=== PATIENT | female | born 1950 | race Caucasian/White ===

== ENCOUNTER → 2018-01-18 | Outpatient (CLI) | payer MEDICARE, BC ==
[~2018-01-18] MED LIST: ACET325; BONIVA; BUDE32NIS; CALPHO600; CHOL10002; DOXE0.5; ESTR25VT; HYDSUL200; IRON150C; LEVSOD150; LORA10ER; MULVITA; OMEP20ER PO; RANI150; RANI150 PO; URSO300; VALS80; ZOLP10 PO; [UNRECOGNIZED DRUG - CODE]
[2018-01-18 10:34] LABS: Hematocrit 38.8 % (33.0-51.0); Hemoglobin 11.8 g/dL (11.5-16.0); Mean Corpuscular HGB 28.4 pg (26.0-34.0); Mean Corpuscular HGB Conc 30.4 g/dL (31.5-36.5); Mean Corpuscular Volume 94 fL (80-100); Mean Platelet Volume 9.8 fL (9.1-12.4); Platelet Count 264 K/mm3 (150-400); RDW Coefficient Variation 14.3 % (11.7-14.2); RDW Standard Deviation 48.9 fL (35.1-46.3); Red Blood Cell Count 4.15 M/mm3 (3.80-5.20); White Blood Cell Count 4.84 K/mm3 (4.00-11.30)
[2018-01-18 10:48] LABS: Alanine Aminotransfer (ALT/SGP 49 U/L (12-78); Albumin, Blood 3.9 g/dL (3.4-5.0); Albumin/Globulin Ratio 1.3 (0.8-1.8); Alk Phos 63 U/L (50-136); Anion Gap 10 mmol/L (6-16); Aspartate Aminotrans (AST/SGOT 40 U/L (12-37); Bilirubin, Total 0.5 mg/dL (0.1-1.0); Blood Urea Nitrogen 10 mg/dL (8-24); Bun/Creatinine Ratio 13.4 (12.0-20.0); CO2, Blood 23 mmol/L (21-32); Calcium, Blood 8.9 mg/dL (8.5-10.1); Chloride, Blood 109 mmol/L (98-108); Creatinine, Blood 0.75 mg/dL (0.40-1.00); Globulin, Blood 3.1 g/dL (2.2-4.0); Glomerular Filtration Rate >60 (60-); Glucose, Blood 117 mg/dL (70-99); Potassium, Blood 3.7 mmol/L (3.5-5.5); Sodium, Blood 142 mmol/L (136-145)
[2018-01-18 10:53] LABS: BAND PERCENT MAN 16 % (0-8); BASOPHILS PERCENT MAN 0 % (0-2); EOSINOPHILS ABSOLUTE MAN 0.09 K/mm3 (0.00-0.68); EOSINOPHILS PERCENT MAN 2 % (0-6); LYMPHOCYTES ABSOLUTE MAN 0.67 K/mm3 (0.84-5.20); LYMPHOCYTES PERCENT MAN 14 % (21-46); METAMYELOCYTE ABSOLUTE MAN 0.24 K/mm3 (0.00-0.00); METAMYELOCYTE PERCENT MAN 5 % (0-0); MONOCYTES ABSOLUTE MAN 0.14 K/mm3 (0.16-1.47); MONOCYTES PERCENT MAN 3 % (4-13); NEUTROPHILS ABSOLUTE MAN 3.67 K/mm3 (1.96-9.15); SEG NEUTROPHILS PERCENT MAN 60 % (41-73); TOTAL CELLS COUNTED 100
== END | disposition home or self-care (01) ==
LOC: LAB EV 10:01 → LAB SHORT 10:01
PROVIDERS: General Practice
DX: E03.9 Hypothyroidism, unspecified (principal); I51.7 Cardiomegaly; R05 Cough; Z94.0 Kidney transplant status
CPT/HCPCS: 80053; 83880; 84443; 85025

== ENCOUNTER 2018-12-24 11:13 | Day surgery (SDC) | payer MEDICARE, BC ==
[~2018-12-24 11:13] MED LIST changes: +DOXERCALCIFEROL1 MCG PO; +ESZO2 PO; +HYDSUL200 PO; +LEVO-T25 MCG PO; +URSO300 PO; +VALS80 PO; +Zantac150 MG PO
== END 2018-12-24 13:45 | disposition home or self-care (01) ==
LOC: ORSCSDS 11:13
PROVIDERS: Ophthalmology
PROC: 08RJ3JZ Replacement of Right Lens with Synthetic Substitute, Percutaneous Approach (ICD-10-PCS; principal; 2018-12-24 13:00)
DX: H25.11 Age-related nuclear cataract, right eye (principal); H18.51 Endothelial corneal dystrophy; Z79.899 Other long term (current) drug therapy
CPT/HCPCS: J2001; J2250; J3010; J7120; V2632

== ENCOUNTER 2019-02-04 12:21 | Day surgery (SDC) | payer MEDICARE, BC ==
[~2019-02-04] VITALS: Ht 167.6 cm; Wt 69.7 kg
== END 2019-02-04 14:16 | disposition home or self-care (01) ==
LOC: ORSCSDS 12:21
PROVIDERS: Ophthalmology
PROC: 08RK3JZ Replacement of Left Lens with Synthetic Substitute, Percutaneous Approach (ICD-10-PCS; principal; 2019-02-04 14:00)
DX: H25.12 Age-related nuclear cataract, left eye (principal); H18.51 Endothelial corneal dystrophy; I10 Essential (primary) hypertension; E03.9 Hypothyroidism, unspecified; Z79.899 Other long term (current) drug therapy; Z79.82 Long term (current) use of aspirin
CPT/HCPCS: J2001; J2250; J3010; V2632

== ENCOUNTER → 2020-02-21 | Outpatient (CLI) | payer MEDICARE, BC | END | disposition home or self-care (01) | LOC: PLD 11:23 → LAB SHORT 11:23 | DX: D48.5 Neoplasm of uncertain behavior of skin (principal) | CPT/HCPCS: 88305 ==

== ENCOUNTER → 2021-09-05 | Outpatient (CLI) | payer MEDICARE, BC ==
[~2021-09-05] MED LIST changes: +ACET500 PO; +ATOR40TA PO; +AZIT250 PO; +Aspir 8181 MG PO; +CEFP200 PO; +COQ-10100 MG PO; +Calcium Carbon500 MG PO; +DEXA4 PO; -LEVO-T25 MCG PO; +LEVSOD137 PO; +MAGNESIUM OXID500 MG PO; +METO25ER PO; +MULVITA PO; +MYCO250 PO; +POTCHL20ER PO; +PRED5 PO; +SYSTANE COMPLET10 ML; +TACR1 PO; +THERA-D2000 UNIT PO
[2021-09-05 17:25] LABS: BASOPHILS PERCENT AUTO 0 % (0-2); EOSINOPHILS PERCENT AUTO 0 % (0-6); Hematocrit 36.7 % (33.0-51.0); Hemoglobin 12.1 g/dL (11.5-16.0); IMMATURE GRAN ABSOLUTE AUTO 0.02 K/mm3 (0.00-0.10); IMMATURE GRAN PERCENT AUTO 1 % (0-1); LYMPHOCYTES PERCENT AUTO 14 % (21-46); MONOCYTES ABSOLUTE AUTO 0.35 K/mm3 (0.16-1.47); MONOCYTES PERCENT AUTO 8 % (4-13); Mean Corpuscular HGB 29.4 pg (26.0-34.0); Mean Corpuscular Volume 89 fL (80-100); NEUTROPHILS ABSOLUTE AUTO 3.38 K/mm3 (1.96-9.15); NEUTROPHILS PERCENT AUTO 78 % (41-73); Platelet Count 217 K/mm3 (150-400); RDW Coefficient Variation 13.1 % (11.7-14.2); RDW Standard Deviation 42.6 fL (35.1-46.3); Red Blood Cell Count 4.11 M/mm3 (3.80-5.20); White Blood Cell Count 4.35 K/mm3 (4.00-11.30)
[2021-09-05 17:34] LABS: Anion Gap 15 mmol/L (6-16); Blood Urea Nitrogen 15 mg/dL (8-24); Bun/Creatinine Ratio 19.2 (12.0-20.0); CO2, Blood 20 mmol/L (21-32); Calcium, Blood 8.6 mg/dL (8.5-10.1); Chloride, Blood 98 mmol/L (98-108); Creatinine, Blood 0.78 mg/dL (0.40-1.00); Glomerular Filtration Rate >60 (60-); Glucose, Blood 133 mg/dL (70-99); Potassium, Blood 3.8 mmol/L (3.5-5.5); Sodium, Blood 133 mmol/L (136-145)
== END ==
LOC: LAB SHORT 17:21
PROVIDERS: Physician Assistant Medical
DX: E86.0 Dehydration (principal)
CPT/HCPCS: 80048; 85025

== ENCOUNTER 2021-09-08 09:04 | Inpatient (IN) | payer MEDICARE, BC ==
[~2021-09-08] VITALS: Ht 167.6 cm; Wt 77.1 kg
[~2021-09-08 09:04] MED LIST changes: -ACET500 PO; -ATOR40TA PO; -AZIT250 PO; -Aspir 8181 MG PO; -CEFP200 PO; -COQ-10100 MG PO; -Calcium Carbon500 MG PO; -DEXA4 PO; -MAGNESIUM OXID500 MG PO; -METO25ER PO; -MULVITA PO; -MYCO250 PO; -POTCHL20ER PO; -PRED5 PO; -SYSTANE COMPLET10 ML; -TACR1 PO; -THERA-D2000 UNIT PO
[2021-09-08 10:07] LABS: BASOPHILS PERCENT AUTO 0 % (0-2); EOSINOPHILS ABSOLUTE AUTO 0.01 K/mm3 (0.00-0.68); EOSINOPHILS PERCENT AUTO 0 % (0-6); Hematocrit 36.6 % (33.0-51.0); IMMATURE GRAN ABSOLUTE AUTO 0.04 K/mm3 (0.00-0.10); IMMATURE GRAN PERCENT AUTO 1 % (0-1); LYMPHOCYTES PERCENT AUTO 11 % (21-46); MONOCYTES ABSOLUTE AUTO 0.34 K/mm3 (0.16-1.47); MONOCYTES PERCENT AUTO 8 % (4-13); Mean Corpuscular HGB 29.3 pg (26.0-34.0); Mean Corpuscular HGB Conc 32.8 g/dL (31.5-36.5); Mean Corpuscular Volume 90 fL (80-100); Mean Platelet Volume 10.2 fL (9.1-12.4); NEUTROPHILS ABSOLUTE AUTO 3.51 K/mm3 (1.96-9.15); NEUTROPHILS PERCENT AUTO 80 % (41-73); Platelet Count 259 K/mm3 (150-400); RDW Coefficient Variation 12.7 % (11.7-14.2); RDW Standard Deviation 41.7 fL (35.1-46.3); Red Blood Cell Count 4.09 M/mm3 (3.80-5.20)
[2021-09-08] MEDS ORDERED: PRED5 PO (10:20)
[2021-09-08] MEDS ORDERED: TACR1 PO (10:21)
[2021-09-08] MEDS ORDERED: MYCO250 PO (10:21)
[2021-09-08] MEDS ORDERED: METO25ER PO (10:22)
[2021-09-08] MEDS ORDERED: Calcium Carbon500 MG PO (10:24)
[2021-09-08] MEDS ORDERED: THERA-D2000 UNIT PO (10:24)
[2021-09-08] MEDS ORDERED: POTCHL20ER PO (10:26)
[2021-09-08] MEDS ORDERED: Aspir 8181 MG PO (10:26)
[2021-09-08] MEDS ORDERED: MULVITA PO (10:26)
[2021-09-08] MEDS ORDERED: MAGNESIUM OXID500 MG PO (10:26)
[2021-09-08] MEDS ORDERED: ATOR40TA PO (10:27)
[2021-09-08] MEDS ORDERED: COQ-10100 MG PO (10:27)
[2021-09-08] MEDS ORDERED: ACET500 PO (10:27)
[2021-09-08] MEDS ORDERED: SYSTANE COMPLET10 ML (10:28)
[2021-09-08 10:34] LABS: Alanine Aminotransfer (ALT/SGP 35 U/L (12-78); Albumin, Blood 2.9 g/dL (3.4-5.0); Albumin/Globulin Ratio 0.8 (0.8-1.8); Alk Phos 114 U/L (50-136); Anion Gap 8 mmol/L (6-16); Aspartate Aminotrans (AST/SGOT 42 U/L (12-37); Bilirubin, Total 0.8 mg/dL (0.1-1.0); Blood Urea Nitrogen 18 mg/dL (8-24); Bun/Creatinine Ratio 22.1 (12.0-20.0); CO2, Blood 20 mmol/L (21-32); Calcium, Blood 8.8 mg/dL (8.5-10.1); Chloride, Blood 105 mmol/L (98-108); Creatinine, Blood 0.82 mg/dL (0.40-1.00); Globulin, Blood 3.8 g/dL (2.2-4.0); Glomerular Filtration Rate >60 (60-); Glucose, Blood 196 mg/dL (70-99); Potassium, Blood 3.5 mmol/L (3.5-5.5); Sodium, Blood 133 mmol/L (136-145); Total Protein, Blood 6.7 g/dL (6.4-8.2); Troponin I 0.034 ng/mL (0.000-0.040)
[2021-09-08 10:49] LABS: Influenza A, PCR NEGATIVE (NEGATIVE); Influenza B, PCR NEGATIVE (NEGATIVE); Resp Syncytial Virus, PCR NEGATIVE (NEGATIVE)
[2021-09-08 10:54] LABS: SARS-Cov-2 (COVID-19) PCR, MMC POSITIVE (NEGATIVE)
--- NOTE | 2021-09-08 17:20 | NUR ---
SHIFT SUMMARY PATIENT WAS ADMITTED TO MEDICAL FLOOR AT APPROX 1600. PATIENT IS ALERT AND ORIENTED X4. PATIENT IS COVID POSITIVE AND SATTING ABOVE 92 ON ROOM AIR. PATIENT REPORTED HAVING LOOSE STOOLS BUT NONE SINCE ARRIVAL. PATIENT IS A STANDBY ASSIST TO BEDSIDE COMMODE. VITAL SIGNS REVIEWED. CALL LIGHT IN PLACE. WILL MONITOR UNTIL SHIFT CHANGE.
--- NOTE | 2021-09-08 19:18 | NUR ---
ALERT. ASSISTED TO BATHROOM, USES CALL LIGHT ADEQUATELY. IVF INFUSING. BACK TO BED. CALL LIGHT IN REACH
--- NOTE | 2021-09-08 21:28 | NUR ---
2130 PT CBG 242 MG/DL. UNABLE TO SCAN PT.
--- NOTE | 2021-09-09 03:38 | NUR ---
SHIFT SUMMARY PT RESTING THROUGHOUT EVENING AND NIGHT. PT MEDICATED PER EMAR. RT PUT PT ON 2L OF O2 NC, SATS 94-95%. COVID+ AND HAS A COUGH. PT STS FEELING BETTER THAN SHE DID EARLIER YESTERDAY. GETS UP TO TOILET WITH MINIMAL ASSISTANCE, ALTHOUGH SHE SHOULD BE SUPERVISED, SHE IS WEAK. HX HYPERTENSION, GERD, AND KIDNEY TRANSPLANT IN 2017. SHE HAS ALLERGIES TO SULFA AND LISINOPRIL. PT A&O X 4. TELE SINUS WITH PVC AND PAC AT 83. NS AND POTASSIUM RUNNING AT 100/HR. CALL LIGHT WITHIN REACH AND WILL CONTINUE TO MONITOR.
[2021-09-09 05:01] LABS: BASOPHILS PERCENT AUTO 0 % (0-2); EOSINOPHILS PERCENT AUTO 0 % (0-6); Hematocrit 36.9 % (33.0-51.0); Hemoglobin 11.9 g/dL (11.5-16.0); IMMATURE GRAN ABSOLUTE AUTO 0.02 K/mm3 (0.00-0.10); IMMATURE GRAN PERCENT AUTO 1 % (0-1); LYMPHOCYTES ABSOLUTE AUTO 0.42 K/mm3 (0.84-5.20); LYMPHOCYTES PERCENT AUTO 21 % (21-46); MONOCYTES ABSOLUTE AUTO 0.16 K/mm3 (0.16-1.47); MONOCYTES PERCENT AUTO 8 % (4-13); Mean Corpuscular HGB 29.6 pg (26.0-34.0); Mean Corpuscular HGB Conc 32.2 g/dL (31.5-36.5); Mean Corpuscular Volume 92 fL (80-100); Mean Platelet Volume 10.2 fL (9.1-12.4); NEUTROPHILS ABSOLUTE AUTO 1.36 K/mm3 (1.96-9.15); NEUTROPHILS PERCENT AUTO 69 % (41-73); Platelet Count 229 K/mm3 (150-400); RDW Coefficient Variation 12.6 % (11.7-14.2); Red Blood Cell Count 4.02 M/mm3 (3.80-5.20); White Blood Cell Count 1.96 K/mm3 (4.00-11.30)
[2021-09-09 05:18] LABS: Alanine Aminotransfer (ALT/SGP 31 U/L (12-78); Albumin, Blood 2.6 g/dL (3.4-5.0); Albumin/Globulin Ratio 0.7 (0.8-1.8); Alk Phos 104 U/L (50-136); Anion Gap 8 mmol/L (6-16); Aspartate Aminotrans (AST/SGOT 35 U/L (12-37); Bilirubin, Total 0.3 mg/dL (0.1-1.0); Blood Urea Nitrogen 16 mg/dL (8-24); Bun/Creatinine Ratio 22.9 (12.0-20.0); CO2, Blood 19 mmol/L (21-32); Calcium, Blood 8.4 mg/dL (8.5-10.1); Chloride, Blood 115 mmol/L (98-108); Globulin, Blood 3.8 g/dL (2.2-4.0); Glomerular Filtration Rate >60 (60-); Glucose, Blood 203 mg/dL (70-99); Magnesium, Blood 1.4 mg/dL (1.6-2.4); Potassium, Blood 4.2 mmol/L (3.5-5.5); Sodium, Blood 142 mmol/L (136-145); Total Protein, Blood 6.4 g/dL (6.4-8.2)
--- NOTE | 2021-09-09 16:07 | NUR ---
SHIFT SUMMARY PATIENT IS ALERT AND ORIENTED X4. PATIENT IS PLEASENT AND COOPERATIVE WITH CARE. PATIENT IS COVID + AND IS SATTING ABOVE 90 ON 2 LITERS OXYGEN. PATIENT HAS NO COMPLAINTS OF SOB, PAIN, NAUSEA AND VOMITTING. NO ACUTE EVENTS THIS SHIFT. VITAL SIGNS REVIEWED. WILL MONITOR UNTIL SHIFT CHANGE.
[2021-09-10 01:04] LABS: Source, Urine Clean Catch
[2021-09-10 01:15] LABS: Bilirubin, Urine Neg (Neg); Blood, Urine Neg (Neg); Glucose Qualitative, Urine 2+ (Neg); Ketones, Urine Neg (Neg); Leukocyte Esterase, Urine Neg (Neg); Nitrite, Urine Neg (Neg); Protein, Urine Neg (Neg); Urobilinogen, Urine NORM (Normal)
[2021-09-10 01:20] LABS: Appearance, Urine Clear (Clear); Color, Urine Yellow (P-Yellow)
--- NOTE | 2021-09-10 04:06 | NUR ---
SHIFT SUMMARY AOX4. VSS. TELE NSR c PVC & PAC HR 80'S. SPO2 94% ON 2L O2. COVID+. LS DIM c CRACKLES IN BASES. LABOURED BREATHING c EXERTION, GETS DYSPNIC WHILE TALKING OR AMBULATING. DRY NONPRODUCTIVE COUGH. STATES BREATHING "IS BETTER." DENIES N/V OR PAIN. HS CBG @309, PROVIDED COVERAGE PER EMAR. RECIEVING NS c KCL @100ML/HR. CALL LIGHT IN REACH. WCTM UNTIL DAY NURSE ASSUMES CARE.
[2021-09-10 04:56] LABS: Hematocrit 33.3 % (33.0-51.0); Hemoglobin 10.7 g/dL (11.5-16.0); Mean Corpuscular HGB 29.4 pg (26.0-34.0); Mean Corpuscular HGB Conc 32.1 g/dL (31.5-36.5); Mean Corpuscular Volume 92 fL (80-100); Mean Platelet Volume 10.3 fL (9.1-12.4); Platelet Count 247 K/mm3 (150-400); RDW Coefficient Variation 12.8 % (11.7-14.2); RDW Standard Deviation 42.5 fL (35.1-46.3); Red Blood Cell Count 3.64 M/mm3 (3.80-5.20); White Blood Cell Count 4.67 K/mm3 (4.00-11.30)
[2021-09-10 05:23] LABS: Alanine Aminotransfer (ALT/SGP 33 U/L (12-78); Albumin, Blood 2.4 g/dL (3.4-5.0); Albumin/Globulin Ratio 0.8 (0.8-1.8); Alk Phos 89 U/L (50-136); Anion Gap 11 mmol/L (6-16); Aspartate Aminotrans (AST/SGOT 28 U/L (12-37); Bilirubin, Total 0.4 mg/dL (0.1-1.0); Blood Urea Nitrogen 19 mg/dL (8-24); Bun/Creatinine Ratio 29.8 (12.0-20.0); CO2, Blood 15 mmol/L (21-32); Calcium, Blood 7.8 mg/dL (8.5-10.1); Chloride, Blood 117 mmol/L (98-108); Creatinine, Blood 0.64 mg/dL (0.40-1.00); Glomerular Filtration Rate >60 (60-); Glucose, Blood 206 mg/dL (70-99); Magnesium, Blood 1.4 mg/dL (1.6-2.4); Potassium, Blood 3.8 mmol/L (3.5-5.5); Sodium, Blood 143 mmol/L (136-145); Total Protein, Blood 5.4 g/dL (6.4-8.2)
[2021-09-10 07:03] LABS: BASOPHILS PERCENT MAN 0 % (0-2); EOSINOPHILS PERCENT MAN 0 % (0-6); LYMPHOCYTES ABSOLUTE MAN 0.37 K/mm3 (0.84-5.20); LYMPHOCYTES PERCENT MAN 8 % (21-46); MONOCYTES ABSOLUTE MAN 0.32 K/mm3 (0.16-1.47); MONOCYTES PERCENT MAN 7 % (4-13); NEUTROPHILS ABSOLUTE MAN 3.96 K/mm3 (1.96-9.15); SEG NEUTROPHILS PERCENT MAN 85 % (41-73); TOTAL CELLS COUNTED 100
--- NOTE | 2021-09-10 18:22 | NUR ---
SHIFT SUMMARY PATIENT IS PLEASANT AND COOPERATIVE WITH CARE TODAY. PATIENT IS ON 2L NC AND BECOMES EASILY SOB DURING TALKING OR GETTING UP TO THE BATHROOM. PATIENT HAD MULITPLE LOOSE GREEN STOOLS TODAY, HOWEVER SHE STATES IT IS BECOMING MORE FORMED. ECHO WAS DONE TODAY. TOLERATED WELL. PATIENT IS ON TELEMENTRY SR PVC 80S. PATIENT COMPLAINED OF HEADACHE THROUGHOUT DAY THAT WAS QUICKLY RELIEVED WITH 500MG TYLENOL. VITAL SIGNS STABLE. WILL CONTINUE TO MONITOR.
--- NOTE | 2021-09-11 04:24 | NUR ---
71 year old female unvaccinated with hx of renal transplant has covid 19 & continues on 2 l nc oxygen, sob with exertion & gen weakness. Denies need for pain med. Continues on tel monitoring with sinus erma as low as 49 with PVC PAC. Up indep in room amb with oxygen. Spouse has CLL & immunocomp & PT on several antirejection rx.
[2021-09-11 05:49] LABS: BASOPHILS PERCENT AUTO 0 % (0-2); EOSINOPHILS PERCENT AUTO 0 % (0-6); Hematocrit 35.3 % (33.0-51.0); Hemoglobin 11.3 g/dL (11.5-16.0); IMMATURE GRAN ABSOLUTE AUTO 0.11 K/mm3 (0.00-0.10); IMMATURE GRAN PERCENT AUTO 2 % (0-1); LYMPHOCYTES ABSOLUTE AUTO 0.39 K/mm3 (0.84-5.20); LYMPHOCYTES PERCENT AUTO 7 % (21-46); MONOCYTES ABSOLUTE AUTO 0.36 K/mm3 (0.16-1.47); MONOCYTES PERCENT AUTO 6 % (4-13); Mean Corpuscular HGB 29.5 pg (26.0-34.0); Mean Corpuscular Volume 92 fL (80-100); Mean Platelet Volume 10.3 fL (9.1-12.4); NEUTROPHILS ABSOLUTE AUTO 4.88 K/mm3 (1.96-9.15); NEUTROPHILS PERCENT AUTO 85 % (41-73); Platelet Count 278 K/mm3 (150-400); RDW Coefficient Variation 12.8 % (11.7-14.2); Red Blood Cell Count 3.83 M/mm3 (3.80-5.20); White Blood Cell Count 5.74 K/mm3 (4.00-11.30)
[2021-09-11 06:41] LABS: Alanine Aminotransfer (ALT/SGP 30 U/L (12-78); Albumin, Blood 2.6 g/dL (3.4-5.0); Albumin/Globulin Ratio 0.9 (0.8-1.8); Alk Phos 87 U/L (50-136); Anion Gap 13 mmol/L (6-16); Aspartate Aminotrans (AST/SGOT 27 U/L (12-37); Bilirubin, Total 0.4 mg/dL (0.1-1.0); Blood Urea Nitrogen 20 mg/dL (8-24); Bun/Creatinine Ratio 29.9 (12.0-20.0); CO2, Blood 18 mmol/L (21-32); Calcium, Blood 7.7 mg/dL (8.5-10.1); Chloride, Blood 113 mmol/L (98-108); Creatinine, Blood 0.67 mg/dL (0.40-1.00); Glomerular Filtration Rate >60 (60-); Glucose, Blood 198 mg/dL (70-99); Potassium, Blood 3.7 mmol/L (3.5-5.5); Sodium, Blood 144 mmol/L (136-145); Total Protein, Blood 5.6 g/dL (6.4-8.2)
[2021-09-11] MEDS ORDERED: AZIT250 PO (11:09)
[2021-09-11] MEDS ORDERED: CEFP200 PO (11:10)
[2021-09-11] MEDS ORDERED: DEXA4 PO (11:13)
--- NOTE | 2021-09-11 13:09 | NUR ---
Per Dr. John Hong discharge appropriate on today (09/11/21). Patient does not oppose discharge. Daughter will transport patient to her residence. Family lives next door; patient has strong support system. No DME needs at this time. Patient has a scheduled follow up appointment with Dr. Cuevas on 09/18/21 at 1620. No barriers to discharge at this time. Patient or daughter will contact PCP if condition worsens or has has questions on medication management.
--- NOTE | 2021-09-11 14:30 | NUR ---
DISCHARGE SUMMARY PATIENT DISCHARGED HOME TODAY. DISCHARGE INFORMATION GIVEN AND WENT OVER WITH PATIENT. PATIENT HAD NO QUESTIONS. MEDICATION LIST FAXED TO PATIENT'S STATED PHARMACY. PATIENT TAKEN DOWN TO PERSONAL VEHICLE VIA WHEELCHAIR WITH ALL PERSONAL BELONGINGS.
== END 2021-09-11 13:47 | disposition home or self-care (01) | DRG 177 ==
LOC: ER 09:04 → ERHOLD 13:27 → MEDS 16:04
PROVIDERS: Emergency Medicine; ADMIT Internal Medicine Endocrinology, Diabetes & Metabolism
PROC: 3E0333Z Introduction of Anti-inflammatory into Peripheral Vein, Percutaneous Approach (ICD-10-PCS; principal; 2021-09-08)
PROC: 8E0ZXY6 Isolation (ICD-10-PCS; 2021-09-08)
DX: U07.1 COVID-19 (principal); J96.01 Acute respiratory failure with hypoxia; J12.82 Pneumonia due to coronavirus disease 2019; Z94.0 Kidney transplant status; E89.0 Postprocedural hypothyroidism; E78.00 Pure hypercholesterolemia, unspecified; I51.7 Cardiomegaly; Z88.2 Allergy status to sulfonamides; Z88.8 Allergy status to other drugs, medicaments and biological substances; I12.9 Hypertensive chronic kidney disease with stage 1 through stage 4 chronic kidney disease, or unspecified chronic kidney disease; N18.30 Chronic kidney disease, stage 3 unspecified; Z90.710 Acquired absence of both cervix and uterus; M81.0 Age-related osteoporosis without current pathological fracture; K21.9 Gastro-esophageal reflux disease without esophagitis; I27.20 Pulmonary hypertension, unspecified; Z85.828 Personal history of other malignant neoplasm of skin
CPT/HCPCS: 0241U; 36415; 71045; 71260; 80053; 81003; 82947; 83735; 83880; 84484; 85007; 85025; 85027; 85379; 93005; 93010; 93306; 94760; 94761; 96374; 96375; 99285-25; A9270; J0456; J0696; J1100; J1650; J1815; J2930; J3475; J3480; J7050; J7507; J7517; Q9967

== ENCOUNTER 2024-09-14 06:15 | Emergency (ER) | payer MEDICARE, BC ==
[~2024-09-14] VITALS: Ht 167.6 cm; Wt 75.3 kg
[~2024-09-14 06:15] MED LIST changes: +ACET500 PO; +ATOR40TA PO; +AZIT250 PO; +Aspir 8181 MG PO; +CEFP200 PO; +COQ-10100 MG PO; +Calcium Carbon500 MG PO; +DEXA4 PO; +MAGNESIUM OXID500 MG PO; +METO25ER PO; +MULVITA PO; +MYCO250 PO; +POTCHL20ER PO; +PRED5 PO; +SYSTANE COMPLET10 ML; +TACR1 PO; +THERA-D2000 UNIT PO
[2024-09-14] MEDS ORDERED: Dexamethasone Sod Phos 10 MG/ML 1ML VIAL PO ONE (06:40)
[2024-09-14 07:38] LABS: Influenza B, PCR NEGATIVE (NEGATIVE); Resp Syncytial Virus, PCR NEGATIVE (NEGATIVE); SARS-Cov-2 (COVID-19) PCR, MMC NEGATIVE (NEGATIVE)
[2024-09-14 07:56] LABS: Influenza A, PCR POSITIVE (NEGATIVE)
[2024-09-14] MEDS ORDERED: ALBU90OI INH (08:24)
[2024-09-14] MEDS ORDERED: BENZ100A PO (08:24)
[2024-09-14 08:45] VITALS: BP 113/65
== END 2024-09-14 08:47 | disposition home or self-care (01) ==
LOC: ER 06:15
PROVIDERS: Emergency Medicine
DX: J10.1 Influenza due to other identified influenza virus with other respiratory manifestations (principal); K21.9 Gastro-esophageal reflux disease without esophagitis; I10 Essential (primary) hypertension; Z79.899 Other long term (current) drug therapy; Z79.82 Long term (current) use of aspirin; Z88.2 Allergy status to sulfonamides; Z88.8 Allergy status to other drugs, medicaments and biological substances
CPT/HCPCS: 0241U; 71046; 99283-25; J1100

== ENCOUNTER 2025-08-12 06:19 | Emergency (ER) | payer MEDICARE, BC ==
[~2025-08-12] VITALS: Ht 167.6 cm; Wt 74.8 kg
[~2025-08-12 06:19] MED LIST changes: +ALBU90OI INH; +BENZ100A PO
[2025-08-12] MEDS ORDERED: ELIQUIS2.5 MG PO (06:41)
[2025-08-12] MEDS ORDERED: NORVASC5 MG PO (06:42)
[2025-08-12] MEDS ORDERED: LORazepam 2 MG/ML 1ML Injection IV ONE (07:10)
[2025-08-12] MEDS ORDERED: Ketamine HCl 100 MG / ML 5ML Vial IV ONE (07:10)
[2025-08-12] MEDS ORDERED: NS 1,000 ML IV ONE (07:24)
[2025-08-12 08:24] VITALS: BP 140/85
== END 2025-08-12 08:40 | disposition home or self-care (01) ==
LOC: ER 06:19
DX: T18.198A Other foreign object in esophagus causing other injury, initial encounter (principal); I12.9 Hypertensive chronic kidney disease with stage 1 through stage 4 chronic kidney disease, or unspecified chronic kidney disease; N18.30 Chronic kidney disease, stage 3 unspecified; Z79.899 Other long term (current) drug therapy; W44.8XXA Other foreign body entering into or through a natural orifice, initial encounter
CPT/HCPCS: 42809; 70360; 99283-25; J2060; J7030